=== PATIENT | female | born 1960 | race American Indian/Alaskan Native ===

== ENCOUNTER → 2018-04-17 | Outpatient (CLI) | payer OTHER | END | disposition home or self-care (01) | LOC: HKI 10:07 | DX: M17.12 Unilateral primary osteoarthritis, left knee (principal); F41.9 Anxiety disorder, unspecified; Z88.0 Allergy status to penicillin; Z88.2 Allergy status to sulfonamides; Z96.651 Presence of right artificial knee joint | CPT/HCPCS: 73562; 73562-50 ==

== ENCOUNTER → 2018-05-01 | Outpatient (CLI) | payer OTHER | END | disposition home or self-care (01) | LOC: HKI 10:40 | DX: Z01.818 Encounter for other preprocedural examination (principal) | CPT/HCPCS: G0463 ==

== ENCOUNTER 2018-05-11 10:10 | Inpatient (IN) | payer OTHER ==
[2018-05-11] MEDS: ACETAMINOPHEN 1000 MG/100 ML IVPB IVPB (07:00)
[2018-05-11] MEDS: LACTATED RINGER'S 1,000 ML IV ×2 (07:00→12:00)
[2018-05-11] MEDS: DEXAMETHASONE 4 MG/ML 1 ML INJ IV (07:00)
[~2018-05-11 10:10] MED LIST: BUPIVACAINE 0.75%/DEXT (SPINAL) 2 ML INJ; CLINDAMYCIN 900 MG/50 ML D5W IVPB IVPB
[2018-05-11] MEDS ORDERED: oxyCODONE 5 MG TAB PO (12:30)
[2018-05-11] MEDS ORDERED: MAGNESIUM HYDROXIDE 30ML CUP PO (12:30)
[2018-05-11] MEDS ORDERED: BISACODYL 10 MG SUPP PR (12:30)
[2018-05-11] MEDS ORDERED: NA PHOSPHATE/BIPHOS 133 ML ENEMA PR (12:30)
[2018-05-11] MEDS ORDERED: NALOXONE (0.4 MG/ML) INJ IV ×2 (12:30→15:30)
[2018-05-11] MEDS ORDERED: BETHANECHOL 25 MG TAB PO (12:30)
[2018-05-11] MEDS ORDERED: DIPHENHYDRAMINE 50 MG INJ IV (12:30)
[2018-05-11] MEDS ORDERED: NEOSTIGMINE 3 MG/3 ML SYRINGE (13:04)
[2018-05-11] MEDS ORDERED: ROCURONIUM 50 MG INJ (13:04)
[2018-05-11] MEDS ORDERED: CEFAZOLIN 1 GM INJ (13:04)
[2018-05-11] MEDS ORDERED: MIDAZOLAM 1 MG/ML 2 ML INJ (13:04)
[2018-05-11] MEDS ORDERED: PROPOFOL 20 ML (13:04)
[2018-05-11] MEDS ORDERED: GLYCOPYRROLATE 0.4 MG INJ (13:04)
[2018-05-11] MEDS ORDERED: DEXAMETHASONE 4 MG/ML 1 ML INJ (13:05)
[2018-05-11] MEDS ORDERED: FENTAnyl 50 MCG/ML VIAL (13:05)
[2018-05-11] MEDS ORDERED: ONDANSETRON 4 MG INJ (13:05)
[2018-05-11] MEDS ORDERED: ROPIVACAINE 0.5 % 30 ML VIAL (13:10)
[2018-05-11] MEDS: TRANEXAMIC ACID 1,000 MG in SOD CHLORIDE 0.9% 100 ML IVPB ×2 (14:45→16:00)
[2018-05-11] MEDS ORDERED: morphine SULFATE/PF (10 MG/10 ML) INJ (14:47)
[2018-05-11] MEDS: CLINDAMYCIN 900 MG/D5W (PMX) 50 ML IVPB (14:58)
[2018-05-11] MEDS ORDERED: POLYMYXIN B 500000 UNIT INJ (15:20)
[2018-05-11] MEDS ORDERED: hydrALAzine 20 MG INJ IV (15:30)
[2018-05-11] MEDS ORDERED: LABETALOL HCL 20MG INJ IV (15:30)
[2018-05-11] MEDS ORDERED: ALBUTEROL 0.083% (NEB) 2.5 MG/3 ML AMP HHN (15:30)
[2018-05-11] MEDS ORDERED: EPHEDrine SULFATE 50 MG/5 ML SYG IV (15:30)
[2018-05-11] MEDS ORDERED: ONDANSETRON 4 MG INJ IV (15:30)
[2018-05-11] MEDS ORDERED: FENTAnyl 50 MCG/ML VIAL IV (15:30)
[2018-05-11] MEDS ORDERED: HYDROmorphONE 1 MG/5 ML IV SYRINGE IV ×2 (15:30)
[2018-05-11] MEDS ORDERED: TRIMETHOBENZAMIDE 100 MG/ML VIAL IM (15:30)
[2018-05-11] MEDS ORDERED: IPRATROPIUM (NEB) 0.5 MG/2.5 ML AMP HHN (15:30)
[2018-05-11] MEDS ORDERED: MIDAZOLAM 1 MG/ML 2 ML INJ IV (15:30)
[2018-05-11] MEDS: BACITRACIN 50000 UNITS INJ (15:41)
[2018-05-11] MEDS: POLYMYXIN B 500000 UNIT INJ (15:42)
[2018-05-11] MEDS: ONDANSETRON 4 MG INJ IV ×2 (17:08→18:30)
[2018-05-11] MEDS: HYDROmorphONE 1 MG/5 ML IV SYRINGE IV (17:08)
[2018-05-11] MEDS: FENTAnyl 50 MCG/ML VIAL IV ×2 (17:09→20:14)
[2018-05-11] MEDS: ASPIRIN (EC) 325 MG TAB PO (17:09)
[2018-05-11] MEDS: DOCUSATE SODIUM 100 MG CAP PO (17:09)
[2018-05-11] MEDS: DIPHENHYDRAMINE 50 MG INJ IV (17:25)
[2018-05-11] MEDS ORDERED: KETOROLAC 30 MG INJ (17:33)
[2018-05-11] MEDS ORDERED: HYDROmorphONE 1 MG/ML SYG (17:33)
[2018-05-11] MEDS: HYDROmorphONE 1 MG/ML SYG IV ×2 (17:47→18:53)
[2018-05-11] MEDS: KETOROLAC 30 MG INJ IV (17:56)
[2018-05-11] MEDS: VANCOMYCIN 1 GM (PMX) 250 ML IVPB (18:45)
[2018-05-11] MEDS: SOD CHLORIDE 0.9% 1,000 ML IV (18:45)
[2018-05-11] MEDS: POLYETHYLENE GLYCOL 17 GM PACKET PO (21:00)
[2018-05-11] MEDS: CELECOXIB 100 MG CAP PO (21:00)
[2018-05-11] MEDS: GABAPENTIN 100 MG CAP PO (21:00)
[2018-05-11] MEDS: oxyCODONE 5 MG TAB PO ×2 (21:17→23:06)
[2018-05-11] MEDS: ATORVASTATIN 20 MG TAB PO (21:50)
[2018-05-11] MEDS: VENLAFAXINE (XR) 75 MG CAP PO (21:50)
[2018-05-11] MEDS: QUETIAPINE 100 MG TAB PO (21:50)
[2018-05-11] MEDS: ARIPIPRAZOLE 10 MG TAB PO (23:05)
[2018-05-12] MEDS: ONDANSETRON 4 MG INJ IV ×2 (00:30→06:30)
[2018-05-12] MEDS: SOD CHLORIDE 0.9% 1,000 ML IV (00:46)
[2018-05-12] MEDS: oxyCODONE 5 MG TAB PO ×7 (01:09→23:27)
[2018-05-12] MEDS: LORAZEPAM 1 MG TAB PO ×3 (03:40→20:16)
[2018-05-12] MEDS: VANCOMYCIN 1 GM (PMX) 250 ML IVPB (05:27)
[2018-05-12] MEDS: FUROSEMIDE 40 MG TAB PO ×2 (05:29→17:56)
[2018-05-12 05:50] LABS: ADD MAN DIFF? NO
[2018-05-12 05:57] LABS: BASOPHILS % 0.2 % (0.0-2.0); HEMATOCRIT 28.1 % (37.0-47.0); HEMOGLOBIN 8.7 g/dl (12.0-16.0); LYMPHOCYTES # 0.8 10^3/ul (0.8-2.9); LYMPHOCYTES % 6.1 % (15.0-51.0); MEAN CORPUSCULAR HEMOGLOBIN 26.9 pg (29.0-33.0); MEAN PLATELET VOLUME 12.1 fl (7.4-10.4); MONOCYTE # 0.8 10^3/ul (0.3-0.9); MONOCYTES % 6.4 % (0.0-11.0); NEUTROPHILS % 86.8 % (39.0-77.0); PLATELET COUNT 217 10^3/UL (140-415); RED BLOOD COUNT 3.23 10^6/ul (4.20-5.40); RED CELL DISTRIBUTION WIDTH 15.6 % (11.5-14.5)
[2018-05-12 05:57] LABS: WHITE BLOOD COUNT 12.7 10^3/ul (4.8-10.8)
[2018-05-12 06:23] LABS: ANION GAP 11 (8-16); BLOOD UREA NITROGEN 19 mg/dl (7-20); CALCIUM 8.6 mg/dl (8.4-10.2); CARBON DIOXIDE 24 mmol/L (21-31); CHLORIDE 111 mmol/L (97-110); CREATININE 1.01 mg/dl (0.44-1.00); GLUCOSE 130 mg/dl (70-220); POTASSIUM 4.4 mmol/L (3.5-5.1); SODIUM 142 mmol/L (135-144)
[2018-05-12] MEDS: LACTATED RINGER'S 1,000 ML IV (06:55)
[2018-05-12 07:02] LABS: HEPATITIS C VIRAL ANTIBODY NEGATIVE (NEGATIVE)
[2018-05-12] MEDS: FERROUS FUMARATE (SR) TAB PO ×2 (08:07→20:13)
[2018-05-12] MEDS: POLYETHYLENE GLYCOL 17 GM PACKET PO ×2 (08:08→20:12)
[2018-05-12] MEDS: MULTIVITAMINS THERAPEUTIC TAB PO (08:08)
[2018-05-12] MEDS: ASPIRIN (EC) 325 MG TAB PO (08:08)
[2018-05-12] MEDS: GABAPENTIN 100 MG CAP PO ×2 (08:08→20:13)
[2018-05-12] MEDS: CELECOXIB 100 MG CAP PO ×2 (08:08→20:13)
[2018-05-12] MEDS: DOCUSATE SODIUM 100 MG CAP PO ×2 (08:08→20:13)
[2018-05-12] MEDS: QUETIAPINE 100 MG TAB PO ×2 (08:09→20:12)
[2018-05-12] MEDS: SENNA/DOCUSATE NA (8.6MG/50MG) TAB PO (11:04)
[2018-05-12] MEDS: HYDROmorphONE 1 MG/ML SYG IV (13:51)
[2018-05-12] MEDS: HYDROmorphONE 2 MG/ML SYG IV ×2 (17:57→22:13)
[2018-05-12] MEDS: ARIPIPRAZOLE 10 MG TAB PO (20:13)
[2018-05-12] MEDS: VENLAFAXINE (XR) 75 MG CAP PO (20:13)
[2018-05-12] MEDS: ATORVASTATIN 20 MG TAB PO (20:13)
[2018-05-13 05:17] LABS: ADD MAN DIFF? NO
[2018-05-13 05:19] LABS: BASOPHILS % 0.5 % (0.0-2.0); EOSINOPHILS # 0.2 10^3/ul (0.0-0.5); EOSINOPHILS % 1.9 % (0.0-7.0); HEMATOCRIT 29.9 % (37.0-47.0); HEMOGLOBIN 8.8 g/dl (12.0-16.0); LYMPHOCYTES % 25.6 % (15.0-51.0); MEAN CORPUSCULAR HEMOGLOBIN 26.5 pg (29.0-33.0); MEAN CORPUSCULAR HGB CONC 29.4 g/dl (32.0-37.0); MEAN CORPUSCULAR VOLUME 90.1 fl (82.0-101.0); MEAN PLATELET VOLUME 11.5 fl (7.4-10.4); MONOCYTE # 0.6 10^3/ul (0.3-0.9); MONOCYTES % 7.6 % (0.0-11.0); PLATELET COUNT 198 10^3/UL (140-415); RED BLOOD COUNT 3.32 10^6/ul (4.20-5.40); RED CELL DISTRIBUTION WIDTH 15.6 % (11.5-14.5)
[2018-05-13 05:19] LABS: WHITE BLOOD COUNT 7.7 10^3/ul (4.8-10.8)
[2018-05-13] MEDS: oxyCODONE 5 MG TAB PO ×4 (05:37→16:39)
[2018-05-13] MEDS: PANTOPRAZOLE (EC) 40 MG TAB PO (05:38)
[2018-05-13] MEDS: FUROSEMIDE 40 MG TAB PO (05:40)
[2018-05-13 05:51] LABS: ANION GAP 11 (8-16); BLOOD UREA NITROGEN 18 mg/dl (7-20); CALCIUM 8.3 mg/dl (8.4-10.2); CARBON DIOXIDE 31 mmol/L (21-31); CHLORIDE 106 mmol/L (97-110); CREATININE 1.27 mg/dl (0.44-1.00); GLUCOSE 101 mg/dl (70-220); POTASSIUM 4.3 mmol/L (3.5-5.1); SODIUM 144 mmol/L (135-144)
[2018-05-13] MEDS: HYDROmorphONE 2 MG/ML SYG IV ×2 (07:27→12:33)
[2018-05-13] MEDS: POLYETHYLENE GLYCOL 17 GM PACKET PO (08:55)
[2018-05-13] MEDS: QUETIAPINE 100 MG TAB PO (08:55)
[2018-05-13] MEDS: DOCUSATE SODIUM 100 MG CAP PO (08:55)
[2018-05-13] MEDS: ASPIRIN (EC) 325 MG TAB PO (08:55)
[2018-05-13] MEDS: FERROUS FUMARATE (SR) TAB PO (08:55)
[2018-05-13] MEDS: MULTIVITAMINS THERAPEUTIC TAB PO (08:56)
[2018-05-13] MEDS: CELECOXIB 100 MG CAP PO (08:56)
[2018-05-13] MEDS: GABAPENTIN 100 MG CAP PO (08:56)
[2018-05-13] MEDS: LORAZEPAM 1 MG TAB PO (09:26)
== END 2018-05-13 18:11 | disposition home or self-care (01) | DRG 470 ==
LOC: REC 10:10 → MS1 20:10
PROC: 0SRD069 Replacement of Left Knee Joint with Oxidized Zirconium on Polyethylene Synthetic Substitute, Cemented, Open Approach (ICD-10-PCS; principal; 2018-05-11 14:42)
DX: M17.12 Unilateral primary osteoarthritis, left knee (principal); Z95.0 Presence of cardiac pacemaker; I49.5 Sick sinus syndrome; E88.81 Metabolic syndrome and other insulin resistance; E66.9 Obesity, unspecified; Z68.32 Body mass index [BMI] 32.0-32.9, adult; F41.9 Anxiety disorder, unspecified; F32.9 Major depressive disorder, single episode, unspecified
CPT/HCPCS: 73560; 80048; 85025; 86803; 86850; 86900; 86901; 87086; 97116; 97161; 97165; 97530

== ENCOUNTER → 2018-05-22 | Outpatient (CLI) | payer OTHER | END | disposition home or self-care (01) | LOC: HKI 13:24 | DX: Z09 Encounter for follow-up examination after completed treatment for conditions other than malignant neoplasm (principal); M25.562 Pain in left knee; Z88.0 Allergy status to penicillin; Z88.2 Allergy status to sulfonamides | CPT/HCPCS: 73560; 73560-LT ==